=== PATIENT | female | born 1955 | race Caucasian/White ===

== ENCOUNTER 2017-07-30 09:00 | Outpatient (CLI) | payer MEDICARE, MEDICAID | END 2017-07-30 09:01 | disposition home or self-care (01) | LOC: BICMAMMO 09:00 | PROVIDERS: ATTEND Family Medicine | DX: Z12.31 Encounter for screening mammogram for malignant neoplasm of breast (principal) | CPT/HCPCS: 77063; G0202; 77067 ==

== ENCOUNTER 2017-10-08 12:55 | Outpatient (CLI) | payer MEDICARE, MEDICAID | END 2017-10-08 12:56 | disposition home or self-care (01) | LOC: BICULT 12:55 | PROVIDERS: ATTEND Urology | DX: R35.0 Frequency of micturition (principal); Z87.442 Personal history of urinary calculi | CPT/HCPCS: 76770 ==

== ENCOUNTER 2017-11-14 18:11 | Emergency (ER) | payer MEDICARE, MEDICAID ==
--- NOTE | 2017-11-14 20:04 | RAD ---
LEFT FOOT THREE VIEWS: 11/14/17 HISTORY: 62-year-old female with history of left foot pain following an injury. No evidence for acute fracture or dislocation. IMPRESSION: Degenerative changes without fracture or dislocation. POS: [facility]
--- NOTE | 2017-11-14 20:08 | RAD ---
CHEST PA AND LATERAL: 11/14/17 HISTORY: 62-year-old female with history of chest pain following trauma. COMPARISON: 10/04/10. Heart size is within normal limits. The lungs are clear. No pneumonia, edema, pleural effusion, pneum othorax or other acute intrathoracic disease. IMPRESSION: No acute intrathoracic disease. POS: [facility]
[2017-11-14] MEDS ORDERED: Ondansetron ODT 8 MG TAB ONE (20:44)
[2017-11-14] MEDS ORDERED: HYDROcodone/Acetaminophen 5/325 mg Tablet ONE (20:44)
--- NOTE | 2017-11-14 21:55 | CT ---
CT FACIAL BONES: 11/14/17 Multiple axial tomograms obtained through the facial bones with multiplanar reconstruction. HISTORY: Injury to right side of face with pain. FINDINGS: Nasal bones appear intact. The orbits appear intact. The lamina papyracea are intact. The paranasal s inuses are well aerated. Zygoma are intact. Maxilla appears intact. The mandible is intact. There is evidence of prior sinus surgery. IMPRESSION: No evidence of acute facial bone fracture identified. POS: [facility]
== END 2017-11-14 20:54 | disposition home or self-care (01) ==
LOC: ERS 18:11
DX: S00.83XA Contusion of other part of head, initial encounter (principal); S20.219A Contusion of unspecified front wall of thorax, initial encounter; S90.32XA Contusion of left foot, initial encounter; E78.5 Hyperlipidemia, unspecified; I10 Essential (primary) hypertension; J44.9 Chronic obstructive pulmonary disease, unspecified; F41.9 Anxiety disorder, unspecified; F32.9 Major depressive disorder, single episode, unspecified; W23.0XXA Caught, crushed, jammed, or pinched between moving objects, initial encounter
CPT/HCPCS: 70486; 71046

== ENCOUNTER 2018-01-18 14:42 | Day surgery (SDC) | payer MEDICARE, MEDICAID ==
[2018-01-17 12:01] VITALS: BMI 35.4
[2018-01-18] MEDS ORDERED: Bupivacaine PF 0.5% 30 ML VIAL ONE (15:05)
[2018-01-18] MEDS ORDERED: CEFAZOLIN/Water 2 GM/20 ML SYRINGE ONE (15:31)
[2018-01-18 15:48] LABS: Hemoglobin 14.3 g/dL (12.0-16.0); Mean Corpuscular HGB CONC 33.9 g/dL (32.0-36.0); Mean Corpuscular Hemoglobin 30.3 pg (27.0-31.0); Mean Corpuscular Volume 89.4 fl (81.0-99.0); Mean Platelet Volume 6.8 fL (7.4-10.4); Platelet Count 318 thou/uL (130-400); RBC Distribution Width 12.4 % (11.5-14.5); Red Blood Cell (RBC) Count 4.72 mill/uL (4.20-5.40); White Blood Cell (WBC) Count 9.6 thou/uL (4.8-10.8)
[2018-01-18 16:03] LABS: Anion Gap 14 mmol/L (10-20); BUN (Urea Nitrogen) 27 mg/dL (9.8-20.1); Calc. Creatinine Clearance 117 mL/min (70-130); Calcium 9.7 mg/dL (7.8-10.44); Carbon Dioxide 25 mmol/L (22-29); Chloride 104 mmol/L (98-107); Estimated GFR-MDRD 84; Glucose 93 mg/dL (70-105); Potassium 4.1 mmol/L (3.5-5.1); Sodium 139 mmol/L (136-145)
[2018-01-18] MEDS ORDERED: Fentanyl 100 MCG/2 ML VIAL ONE (16:30)
[2018-01-18] MEDS ORDERED: Midazolam HCl 2 mg/2 ml Vial ONE ×2 (16:30→16:58)
[2018-01-18] MEDS ORDERED: Lidocaine 1% PF 5 ML VIAL ONE (17:44)
[2018-01-18] MEDS ORDERED: PROPOFOL 200 MG/20 ML VIAL ONE (17:44)
--- NOTE | 2018-01-18 19:18 | RAD ---
RIGHT FOOT THREE VIEW 01/18/18 HISTORY: Postop pinning. COMPARISON: None. FINDINGS: There is a retrograde screw through the distal and proximal interphalangeal joints of the second toe. Hammertoe deformity correction of the second metatarsal neck. There are erosive changes throughout t he midfoot. IMPRESSION: Satisfactory postop appearance. POS: [facility]
--- NOTE | 2018-01-19 01:51 | OP ---
DATE OF PROCEDURE: 01/18/2018 SURGEON: Valeria Thakkar DPM PREOPERATIVE DIAGNOSES: Metatarsalgia, second metatarsal, right foot; dislocated second metatarsopha langeal joint, right foot; plantar plate tear, right foot; hammer toe, second digit, right foot; pain , right foot. POSTOPERATIVE DIAGNOSES: Metatarsalgia, second metatarsal, right foot; dislocated second metatarsoph alangeal joint, right foot; plantar plate tear, right foot; hammer toe, second digit, right foot; william n, right foot. PROCEDURES: Lisandro osteotomy, second metatarsal, right foot; plantar plate repair, right foot; and art hrodesis, second digit, right foot. ANESTHESIA: TIVA with local foot block. HEMOSTASIS: Pneumatic ankle tourniquet at 300 mmHg. ESTIMATED BLOOD LOSS: Less than 5 mL. MATERIALS: #2 FiberWire, 2 Synthes headless compression screws, 3-0 Vicryl, 4-0 Vicryl, and 4-0 nylo n. INJECTABLES: 20 mL of 0.5% Marcaine plain. DESCRIPTION OF PROCEDURE: The patient was brought into the operating room and placed on the operatin g table in supine position. Well-padded pneumatic ankle tourniquet was placed about the patient's [facility] lower extremity. Following administration of IV anesthesia, local foot block was given utilizing 20 mL of 0.5% Marcaine plain. The foot was then scrubbed, prepped, and draped in usual aseptic lopez er. Esmarch bandage was used to exsanguinate the patient's right foot. The pneumatic ankle tourniqu et was then inflated to 300 mmHg, which provided adequate hemostasis throughout the entire procedure. Next, attention was then directed to the dorsal aspect of the second metatarsophalangeal joint, whe re a 6-cm longitudinal incision was made extending to the proximal interphalangeal joint of the digit . The incision was deepened through subcuticular structures with care being taken to retract all vit al neurovascular structures. All bleeders were cauterized as necessary. Next, a longitudinal capsul otomy was performed exposing the head of the second metatarsal. Upon adequate exposure of the head, all soft tissue attachments were then carefully resected. A sagittal bone saw was then used to make an oblique cut at the neck of the second metatarsal, shifting into a more corrected shortened positio n. It was held in place with temporary fixation of a Leslee wire. Next, the plantar plate was in spected, where it was noted to be partially torn. At this time, plantar plate repair was performed w ith #2 FiberWire attaching the plantar plate to the base of the proximal phalanx. Next, a Synthes he adless compression screw was placed across the osteotomy site from dorsal to plantar holding into a s hortened position. Next, attention was then directed to the proximal interphalangeal joint of the se cond digit, where a transverse tenotomy was performed. Upon adequate exposure, the head of the proxi mal phalanx as well as the base of the intermediate phalanx were then carefully resected and passed f rom the operative field. Utilizing techniques and principles of [employer]olia, a K-wire was then driven th rough the intermediate phalanx exiting the distal phalanx and toe and retrograded back into the proxi mal phalanx. Fluoroscopy was used to assure proper alignment and all was noted to be correct at this time, and a screw was placed across the K-wire. It was then examined by fluoroscopy and was noted t o be correct at this time. Next, the wound was irrigated with copious amounts of sterile normal sali ne and mixture. The tendon and capsular structures were then reapproximated and coapted utilizing 3-0 Vicryl. The subcuticular was reapproximated and coapted utilizing 4-0 Vicryl. The skin was janett sed with 4-0 nylon in a running interlocking suture pattern. A light compressive dressing was placed about the patient's right foot and the pneumatic ankle tourniquet was released with prompt hyperemic response noted to all digits of the right foot. DISCHARGE SUMMARY: The patient tolerated the procedure and anesthesia and was transferred to the rec overy room with vital signs stable and vascular status intact to all digits of the right foot. Follo wing a period of postoperative monitoring, the patient is to be discharged home. Should she have any problems prior to the first postoperative appointment, she is advised to call and will be seen withi n 1 week of the procedure.
--- NOTE | 2018-01-21 12:47 | EKG ---
Test Reason : Blood Pressure : / mmHG Vent. Rate : 070 BPM Atrial Rate : 070 BPM P-R Int : 136 ms QRS Dur : 088 ms QT Int : 394 ms P-R-T Axes : 049 002 035 degrees QTc Int : 425 ms Poor data quality, interpretation may be adversely affected Normal sinus rhythm Normal ECG When compared with ECG of 26-JUL-2016 13:39, No significant change was found Confirmed by JOLIE FLORES M.D. ([id number]), dictionary editor JAMIE VENCES ([id number]) on 01/21/2018 12:46:57 PM Referred By: LYNDSAY Confirmed By:JOLIE FLORES M.D.
== END 2018-01-18 19:15 | disposition home or self-care (01) ==
LOC: SDC 14:42
PROVIDERS: ATTEND Podiatrist Foot & Ankle Surgery
PROC: 0QSN04Z Reposition Right Metatarsal with Internal Fixation Device, Open Approach (ICD-10-PCS; principal; 2018-01-18)
PROC: 0QBN0ZZ Excision of Right Metatarsal, Open Approach (ICD-10-PCS; 2018-01-18)
PROC: 0SQP0ZZ Repair Right Toe Phalangeal Joint, Open Approach (ICD-10-PCS; 2018-01-18)
DX: S93.124A Dislocation of metatarsophalangeal joint of right lesser toe(s), initial encounter (principal); S93.524A Sprain of metatarsophalangeal joint of right lesser toe(s), initial encounter; M20.41 Other hammer toe(s) (acquired), right foot; Z79.1 Long term (current) use of non-steroidal anti-inflammatories (NSAID); Z79.899 Other long term (current) drug therapy
CPT/HCPCS: 28285; 28308; 28313; 73630; 76001; 80048; 85027; C1713; 36415; J2001; J2250; J2704; J3010; S0020

== ENCOUNTER 2018-03-27 15:25 | Emergency (ER) | payer MEDICARE, MEDICAID ==
[2018-03-27] MEDS ORDERED: HYDROcodone/Acetaminophen 10/325 mg Tablet ONE (16:04)
[2018-03-27] MEDS ORDERED: Ondansetron ODT 4 MG TAB ONE (16:06)
== END 2018-03-27 16:25 | disposition home or self-care (01) ==
LOC: ERS 15:25
DX: B02.9 Zoster without complications (principal); E78.5 Hyperlipidemia, unspecified; I10 Essential (primary) hypertension; J44.9 Chronic obstructive pulmonary disease, unspecified; F41.9 Anxiety disorder, unspecified; F32.9 Major depressive disorder, single episode, unspecified; Z79.899 Other long term (current) drug therapy
CPT/HCPCS: 99282; Q0162

== ENCOUNTER 2019-09-01 12:47 | Outpatient (CLI) | payer MEDICARE, MEDICAID ==
--- NOTE | 2019-09-01 13:09 | MMO ---
Bilateral MAMMO Bilat Screen DDI+CASS. CLINICAL HISTORY: Patient is 64 years old and is seen for screening. The patient has no family history of breast cancer. The patient has no personal history of cancer. The patient has a history of left Stereotatic Biopsy in 2008 - benign. VIEWS: The views performed were: bilateral craniocaudal with tomosynthesis and bilateral mediolateral oblique with tomosynthesis. FILMS COMPARED: The present examination has been compared to prior imaging studies performed at [facility] on 11/04/2010, 02/21/2012, 06/14/2016 and 07/30/2017. This study has been interpreted with the assistance of computer-aided detection. MAMMOGRAM FINDINGS: There are scattered fibroglandular densities. There are new calcifications with grouped or clustered distribution seen in the posterior outer region of the right breast. In the left breast, there are no suspicious masses, calcifications or areas of architectural distortion. IMPRESSION: NEW CALCIFICATIONS IN THE RIGHT BREAST REQUIRE ADDITIONAL EVALUATION. RECOMMEND DIAGNOSTIC MAMMOGRAM. THE RESULTS OF THIS EXAM WERE SENT TO THE PATIENT. ACR BI-RADS Category 0 - Incomplete: Need additional imaging evaluation. [facility] will notify the patient of the need for additional imaging services. MAMMOGRAPHY NOTE: 1. A negative mammogram report should not delay a biopsy if a dominant of clinically suspicious mass is present. 2. Approximately 10% to 15% of breast cancers are not detected by mammography. 3. Adenosis and dense breasts may obscure an underlying neoplasm. Reported by: SORIN MENDOZA MD Electonically Signed: [id number]
== END 2019-09-01 12:48 | disposition home or self-care (01) ==
LOC: BICMAMMO 12:47
PROVIDERS: ATTEND Nurse Practitioner Family
DX: Z12.31 Encounter for screening mammogram for malignant neoplasm of breast (principal); Z91.89 Other specified personal risk factors, not elsewhere classified; N64.89 Other specified disorders of breast
CPT/HCPCS: 77063; 77067

== ENCOUNTER 2019-09-04 14:19 | Outpatient (CLI) | payer MEDICARE, MEDICAID ==
--- NOTE | 2019-09-04 14:55 | MMO ---
Right Breast MAMMO Unilat Diag DDI RT+CASS. CLINICAL HISTORY: Patient is 64 years old and is seen for diagnostic exam. The patient has no family history of breast cancer. The patient has no personal history of cancer. The patient has a history of left Stereotatic Biopsy in 2008 - benign. VIEWS: The views performed were: right craniocaudal spot compression magnification; right mediolateral oblique spot compression magnification; right mediolateral spot compression magnification; and right mediolateral with tomosynthesis. FILMS COMPARED: The present examination has been compared to prior imaging studies performed at [facility] on 02/21/2012, 06/14/2016, 07/30/2017 and 09/01/2019. This study has been interpreted with the assistance of computer-aided detection. MAMMOGRAM FINDINGS: There are scattered fibroglandular densities. There are a few amorphous or indistinct calcifications with grouped or clustered distribution seen in the posterior region of the right breast at 9 o'clock. Calcifications appear too faint for stereotactic bx. IMPRESSION: CALCIFICATIONS IN THE RIGHT BREAST ARE PROBABLY BENIGN. FOLLOW-UP IN 6 MONTHS IS RECOMMENDED. THE RESULTS OF THIS EXAM WERE SENT TO THE PATIENT. ACR BI-RADS Category 3 - Probably benign finding - short interval follow-up suggested. [facility] will notify the patient of the need for additional imaging services. MAMMOGRAPHY NOTE: 1. A negative mammogram report should not delay a biopsy if a dominant of clinically suspicious mass is present. 2. Approximately 10% to 15% of breast cancers are not detected by mammography. 3. Adenosis and dense breasts may obscure an underlying neoplasm. Reported by: BRISEYDA JESSICA MD Electonically Signed: [id number]
== END 2019-09-04 14:20 | disposition home or self-care (01) ==
LOC: BICMAMMO 14:19
PROVIDERS: ATTEND Nurse Practitioner Family
DX: R92.1 Mammographic calcification found on diagnostic imaging of breast (principal)
CPT/HCPCS: 77065; G0279

== ENCOUNTER 2020-04-14 13:58 | Outpatient (CLI) | payer MEDICARE, OTHER ==
--- NOTE | 2020-04-14 14:40 | MMO ---
Right Breast MAMMO Unilat Diag DDI RT+CASS. CLINICAL HISTORY: Patient is 65 years old and is seen for follow-up at short-interval from prior study. The patient has no family history of breast cancer. The patient has no personal history of cancer. The patient has a history of left Stereotatic Biopsy in 2008 - benign. VIEWS: The views performed were: right craniocaudal spot compression magnification; right craniocaudal with tomosynthesis; right mediolateral oblique with tomosynthesis; right mediolateral spot compression magnification; and right mediolateral with tomosynthesis. FILMS COMPARED: The present examination has been compared to prior imaging studies performed at [facility] on 06/14/2016, 07/30/2017, 09/01/2019 and 09/04/2019. This study has been interpreted with the assistance of computer-aided detection. MAMMOGRAM FINDINGS: There are scattered fibroglandular densities. There are stable amorphous or indistinct calcifications with grouped or clustered distribution seen in the right breast at 9 o'clock. IMPRESSION: STABLE CALCIFICATIONS IN THE RIGHT BREAST ARE PROBABLY BENIGN. FOLLOW-UP IN 6 MONTHS IS RECOMMENDED. THE RESULTS OF THIS EXAM WERE SENT TO THE PATIENT. ACR BI-RADS Category 3 - Probably benign finding - short interval follow-up suggested. [facility] will notify the patient of the need for additional imaging services. MAMMOGRAPHY NOTE: 1. A negative mammogram report should not delay a biopsy if a dominant of clinically suspicious mass is present. 2. Approximately 10% to 15% of breast cancers are not detected by mammography. 3. Adenosis and dense breasts may obscure an underlying neoplasm. Reported by: MARINE GREEN MD Electonically Signed: [id number]
== END 2020-04-14 13:59 | disposition home or self-care (01) ==
LOC: BICMAMMO 13:58
PROVIDERS: ATTEND Nurse Practitioner Family
DX: R92.1 Mammographic calcification found on diagnostic imaging of breast (principal)
CPT/HCPCS: 77065; G0279

== ENCOUNTER 2020-07-07 18:46 | Emergency (ER) | payer MEDICARE, OTHER ==
[2020-07-07 19:37] LABS: #Eosinphils 0.1 thou/uL (0.0-0.7); #Lymphocytes 1.2 thou/uL (1.20-3.40); #Monocytes 0.6 thou/uL (0.11-0.59); #Neutrophils 11.6 thou/uL (1.40-6.50); %Basophils 0.2 % (0.0-1.0); %Eosinophils 0.7 % (0.0-10.0); %Lymphocytes 9.1 % (21.0-51.0); %Monocytes 4.5 % (0.0-10.0); %Neutrophils 85.4 % (42.0-75.0); Hemoglobin 13.2 g/dL (12.0-16.0); Mean Corpuscular HGB CONC 32.9 g/dL (32.0-36.0); Mean Corpuscular Volume 88.2 fL (78.0-98.0); Mean Platelet Volume 7.2 fL (7.4-10.4); Platelet Count 333 thou/uL (130-400); RBC Distribution Width 12.7 % (11.5-14.5); Red Blood Cell (RBC) Count 4.55 mill/uL (4.20-5.40); White Blood Cell (WBC) Count 13.6 thou/uL (4.8-10.8)
[2020-07-07 19:53] LABS: ALT (SGPT) 18 U/L (8-55); AST (SGOT) 31 U/L (5-34); Albumin 3.5 g/dL (3.4-4.8); Alkaline Phosphatase 160 U/L (40-110); Anion Gap 14 mmol/L (10-20); BUN (Urea Nitrogen) 21 mg/dL (9.8-20.1); Bilirubin, Total 0.4 mg/dL (0.2-1.2); Calc. Creatinine Clearance 0 mL/min (70-130); Calcium 8.8 mg/dL (7.8-10.44); Carbon Dioxide 25 mmol/L (23-31); Chloride 105 mmol/L (98-107); Estimated GFR-MDRD 85; Globulin 2.8 g/dL (2.4-3.5); Glucose 170 mg/dL (80-115); Potassium 3.9 mmol/L (3.5-5.1); Protein, Total 6.3 g/dL (6.0-8.3); Sodium 140 mmol/L (136-145)
--- NOTE | 2020-07-07 20:40 | ULT ---
ULTRASOUND ABDOMEN LIMITED: (RIGHT UPPER QUADRANT) DATE: 07/07/2020 HISTORY: 65-year-old female with right upper quadrant abdominal pain, nausea FINDINGS: Gallbladder:Distended lumen. Multiple small and tiny mobile gallstones. Normal wall thickness, 2 mm. No sonographic Finley's sign. No pericholecystic fluid. Common duct: 5 mm. Liver:Echogenicity within normal limits. Pancreas:Nonspecific sonographic appearance. Right kidney:No hydronephrosis. IMPRESSION: Positive for cholelithiasis: Multiple small gallstones within distended gallbladder lumen.
--- NOTE | 2020-07-07 21:01 | RAD ---
RADIOGRAPH CHEST 1 VIEW: DATE: 07/07/2020 HISTORY: 65-year-old female with chest pain FINDINGS: There is no airspace density, pulmonary edema, or pneumothorax. The lateral costophrenic angles are n ot effaced. IMPRESSION: No acute pulmonary findings.
== END 2020-07-07 21:14 | disposition home or self-care (01) ==
LOC: ERS 18:46
DX: K80.20 Calculus of gallbladder without cholecystitis without obstruction (principal); E78.5 Hyperlipidemia, unspecified; E78.00 Pure hypercholesterolemia, unspecified; I10 Essential (primary) hypertension; F41.9 Anxiety disorder, unspecified; F32.9 Major depressive disorder, single episode, unspecified; Z79.899 Other long term (current) drug therapy
CPT/HCPCS: 36415; 71045; 76705; 80053; 83880; 84484; 85025; 93005; 94760

== ENCOUNTER 2020-07-28 06:30 | Outpatient (CLI) | payer MEDICARE, MEDICAID ==
[2020-07-28 11:07] LABS: #Eosinphils 0.2 10x3/uL (0.0-0.5); #Monocytes 0.4 10x3/uL (0.0-1.1); #Neutrophils 3.7 10x3/uL (1.5-8.4); %Basophils 0.6 % (0.0-2.0); %Lymphocytes 31.7 % (18.0-47.0); %Monocytes 6.6 % (0.0-10.0); %Neutrophils 57.8 % (40.0-75.0); Hemoglobin 12.8 g/dL (12.0-16.0); Mean Corpuscular HGB CONC 31.5 G/DL (32.0-36.0); Mean Corpuscular Hemoglobin 27.9 PG (27.0-33.0); Mean Corpuscular Volume 88.6 fl (80.0-100.0); Platelet Count 329 10x3/uL (130-400); RBC Distribution Width 13.7 % (11.5-14.5); Red Blood Cell (RBC) Count 4.58 10x6/uL (3.90-5.20); White Blood Cell (WBC) Count 6.4 10x3/uL (4.5-11.0)
[2020-07-28 11:29] LABS: ALT (SGPT) 15 U/L (8-55); AST (SGOT) 14 U/L (5-34); Alkaline Phosphatase 114 U/L (40-110); Anion Gap 16 mmol/L (10-20); BUN (Urea Nitrogen) 19 mg/dL (9.8-20.1); Bilirubin, Total 0.4 mg/dL (0.2-1.2); Calc. Creatinine Clearance 0 mL/min (70-130); Calcium 9.3 mg/dL (7.8-10.44); Carbon Dioxide 28 mmol/L (23-31); Chloride 105 mmol/L (98-107); Globulin 2.8 g/dL (2.4-3.5); Glucose 99 mg/dL (80-115); Potassium 4.7 mmol/L (3.5-5.1); Protein, Total 6.8 g/dL (6.0-8.3); Sodium 144 mmol/L (136-145)
[2020-07-28 14:38] LABS: Hemoglobin A1c 5.9 % (4.0-6.0)
[2020-07-28 18:18] LABS: SARS-CoV-2 MS2 Positive; SARS-CoV-2 N Gene Negative; SARS-CoV-2 S Gene Negative; SARS-CoV-2 by NAA Not Detected (NotDetected); SARS-CoV-2 orf1ab Negative
== END 2020-07-28 06:31 | disposition home or self-care (01) ==
LOC: LABBT 06:30
PROVIDERS: ATTEND Specialist
DX: Z01.818 Encounter for other preprocedural examination (principal); Z20.828 Contact with and (suspected) exposure to other viral communicable diseases; K80.20 Calculus of gallbladder without cholecystitis without obstruction
CPT/HCPCS: 80053; 83036; 85025; 93005; U0003; 87635; 93010

== ENCOUNTER 2020-08-02 10:12 | Day surgery (SDC) | payer MEDICARE, MEDICAID ==
[2020-07-30 09:25] VITALS: BMI 34.7
[2020-08-02] MEDS ORDERED: Acetaminophen 500 MG TAB ONE (10:24)
[2020-08-02] MEDS ORDERED: Ketorolac Tromethamine 30 MG/ML VIAL ONE (10:24)
[2020-08-02] MEDS ORDERED: Fentanyl 100 MCG/2 ML VIAL ONE (12:34)
[2020-08-02] MEDS ORDERED: Lidocaine 1% w/Epinephrine 1:100K 20 ML VIAL ONE (12:38)
[2020-08-02] MEDS ORDERED: Bupivacaine 0.25% HCL 30 ML VIAL ONE (12:38)
--- NOTE | 2020-08-03 12:15 | PRG ---
DATE OF SERVICE: 08/02/2020 Ms. Hoyt presented today for her laparoscopic cholecystectomy. During Anesthesia evaluation, it was noted that she had a cardiac murmur. Echocardiogram was ordered. This unfortunately showed findings consistent with severe aortic stenosis. In light of this new finding, her surgery was canceled for today. She has an appointment to see Dr. Joao Kim in about a week. I had already referred her to see him in regard to bradycardia. I recommended to her that she maintain a low fat diet between now and whenever we can address her gallbladder. I will be happy to proceed with her cholecystectomy after she is cleared from Cardiac standpoint. Job ID: [id number]
== END 2020-08-02 13:28 | disposition home or self-care (01) ==
LOC: SDC 10:12
PROVIDERS: ATTEND Specialist
DX: K80.20 Calculus of gallbladder without cholecystitis without obstruction (principal); R01.1 Cardiac murmur, unspecified; R00.1 Bradycardia, unspecified; K21.9 Gastro-esophageal reflux disease without esophagitis; Z53.8 Procedure and treatment not carried out for other reasons; Z87.891 Personal history of nicotine dependence; Z79.82 Long term (current) use of aspirin; Z79.899 Other long term (current) drug therapy
CPT/HCPCS: 93306; J0690; J1885; J3010; S0020

== ENCOUNTER 2021-07-20 14:42 | Outpatient (CLI) | payer MEDICAID, OTHER | END 2021-07-20 14:43 | disposition home or self-care (01) | LOC: BICMAMMO 14:42 | PROVIDERS: ATTEND Nurse Practitioner Family | DX: R92.8 Other abnormal and inconclusive findings on diagnostic imaging of breast (principal) | CPT/HCPCS: 77066; G0279 ==

== ENCOUNTER 2022-02-03 10:15 | Outpatient (CLI) | payer MEDICARE, OTHER | END 2022-02-03 10:16 | disposition home or self-care (01) | LOC: BICMAMMO 10:15 | PROVIDERS: ATTEND Nurse Practitioner Family | DX: R92.8 Other abnormal and inconclusive findings on diagnostic imaging of breast (principal) | CPT/HCPCS: 77065; G0279 ==

== ENCOUNTER 2022-05-19 18:45 | Emergency (ER) | payer OTHER ==
[~2022-05-19 18:45] MED LIST: Iopamidol-370 76% 500 ML 1 ML ONE
[2022-05-19 19:40] LABS: #Eosinphils 0.1 thou/uL (0.0-0.7); #Lymphocytes 1.9 thou/uL (1.20-3.40); #Monocytes 0.9 thou/uL (0.11-0.59); #Neutrophils 9.8 thou/uL (1.40-6.50); %Eosinophils 0.5 % (0.0-10.0); %Monocytes 7.1 % (0.0-10.0); %Neutrophils 77.3 % (42.0-75.0); Hemoglobin 11.8 g/dL (12.0-16.0); Mean Corpuscular HGB CONC 31.9 g/dL (32.0-36.0); Mean Corpuscular Hemoglobin 28.7 pg (27.0-31.0); Mean Corpuscular Volume 89.8 fL (78.0-98.0); Mean Platelet Volume 7.1 fL (7.4-10.4); Platelet Count 250 thou/uL (130-400); RBC Distribution Width 13.2 % (11.5-14.5); Red Blood Cell (RBC) Count 4.13 mill/uL (4.20-5.40); White Blood Cell (WBC) Count 12.6 thou/uL (4.8-10.8)
[2022-05-19 19:57] LABS: ALT (SGPT) 80 U/L (8-55); AST (SGOT) 34 U/L (5-34); Albumin 3.3 g/dL (3.4-4.8); Alkaline Phosphatase 157 U/L (40-110); Anion Gap 10 mmol/L (10-20); BUN (Urea Nitrogen) 15 mg/dL (9.8-20.1); Bilirubin, Total 0.6 mg/dL (0.2-1.2); Calc. Creatinine Clearance 0 mL/min (70-130); Calcium 8.1 mg/dL (7.8-10.44); Carbon Dioxide 25 mmol/L (23-31); Chloride 105 mmol/L (98-107); Estimated GFR 98; Globulin 2.7 g/dL (2.4-3.5); Glucose 117 mg/dL (80-115); Lipase 111 U/L (8-78); Potassium 3.7 mmol/L (3.5-5.1); Sodium 136 mmol/L (136-145)
[2022-05-19 20:21] LABS: Bacteria/HPF None Seen HPF (None Seen); Bilirubin Negative (Negative); Blood, Urine Trace (Negative); Clarity Clear (Clear); Glucose, Urine (Dipstick) Normal (Negative); Ketone, Urine Negative (Negative); Leukocyte 250 Leu/uL (Negative); Nitrite Negative (Negative); Protein, Urine (Dipstick) Negative (Neg-Trace); Specific Gravity, Urine 1.023 (1.002-1.036); Squamous Epithelial 0-3 HPF (0-3); Urobilinogen Normal mg/dL (Less than 2); pH, Urine 5.5 (5.0-9.0)
[2022-05-19] MEDS ORDERED: Morphine 4 MG/ML VIAL ONE (22:22)
[2022-05-19] MEDS ORDERED: Ondansetron PF 4 MG/2 ML Vial ONE (22:22)
== END 2022-05-20 00:54 | disposition home or self-care (01) ==
LOC: ERS 18:45
DX: K85.90 Acute pancreatitis without necrosis or infection, unspecified (principal); I10 Essential (primary) hypertension; E78.5 Hyperlipidemia, unspecified; J44.9 Chronic obstructive pulmonary disease, unspecified; Z87.891 Personal history of nicotine dependence; Z79.899 Other long term (current) drug therapy
CPT/HCPCS: 36415; 74177; 76705; 80053; 81003; 81015; 83690; 84484; 85025; 93005; 96374; 96375; J2270; J2405; Q9967

== ENCOUNTER 2022-05-27 03:51 | Inpatient (IN) | payer OTHER ==
[2022-05-27 04:59] LABS: #Eosinphils 0.2 thou/uL (0.0-0.7); #Lymphocytes 1.4 thou/uL (1.20-3.40); #Monocytes 0.7 thou/uL (0.11-0.59); #Neutrophils 6.3 thou/uL (1.40-6.50); %Basophils 0.2 % (0.0-1.0); %Eosinophils 1.8 % (0.0-10.0); %Lymphocytes 16.5 % (21.0-51.0); %Monocytes 7.6 % (0.0-10.0); %Neutrophils 73.9 % (42.0-75.0); Hemoglobin 13.7 g/dL (12.0-16.0); Mean Corpuscular HGB CONC 33.2 g/dL (32.0-36.0); Mean Corpuscular Hemoglobin 29.6 pg (27.0-31.0); Mean Corpuscular Volume 89.2 fL (78.0-98.0); Mean Platelet Volume 6.9 fL (7.4-10.4); Platelet Count 368 thou/uL (130-400); RBC Distribution Width 12.6 % (11.5-14.5); Red Blood Cell (RBC) Count 4.64 mill/uL (4.20-5.40); White Blood Cell (WBC) Count 8.5 thou/uL (4.8-10.8)
[2022-05-27 05:10] LABS: ALT (SGPT) 44 U/L (8-55); AST (SGOT) 90 U/L (5-34); Albumin 3.8 g/dL (3.4-4.8); Alkaline Phosphatase 241 U/L (40-110); Anion Gap 15 mmol/L (10-20); BUN (Urea Nitrogen) 24 mg/dL (9.8-20.1); Bilirubin, Total 0.6 mg/dL (0.2-1.2); Calc. Creatinine Clearance 0 mL/min (70-130); Calcium 9.7 mg/dL (7.8-10.44); Carbon Dioxide 27 mmol/L (23-31); Chloride 103 mmol/L (98-107); Estimated GFR 84; Globulin 4.1 g/dL (2.4-3.5); Glucose 135 mg/dL (80-115); Potassium 3.7 mmol/L (3.5-5.1); Protein, Total 7.9 g/dL (5.8-8.1); Sodium 141 mmol/L (136-145)
[2022-05-27] MEDS ORDERED: Morphine 4 MG/ML VIAL ONE (05:19)
[2022-05-27] MEDS ORDERED: Ondansetron PF 4 MG/2 ML Vial ONE (05:19)
[2022-05-27 05:36] LABS: Lipase 8600 U/L (8-78)
[2022-05-27 06:04] LABS: Bilirubin Negative (Negative); Blood, Urine Negative (Negative); Clarity Clear (Clear); Glucose, Urine (Dipstick) Normal (Negative); Ketone, Urine Negative (Negative); Leukocyte Negative Leu/uL (Negative); Nitrite Negative (Negative); Protein, Urine (Dipstick) 20 mg/dL (Neg-Trace); Specific Gravity, Urine 1.033 (1.002-1.036)
[2022-05-27] MEDS ORDERED: Piperacillin/Tazobactam 3.375 GM VIAL ONE (06:32)
[2022-05-27] MEDS ORDERED: Acetaminophen 325 MG TAB PO PRN (07:40)
[2022-05-27] MEDS ORDERED: Morphine 2 MG/ML VIAL SLOW IVP PRN (07:56)
[2022-05-27 11:35] LABS: SARS-CoV-2 NAA Rapid Test Not Detected (NotDetected)
[2022-05-27 13:39] VITALS: BMI 36.6
[2022-05-27] MEDS: Lactated Ringer's 1,000 ML IV SCH ×2 (14:45→20:50)
[2022-05-27] MEDS: Fish Oil 1,000 MG CAP PO SCH (19:14)
[2022-05-28] MEDS: Lactated Ringer's 1,000 ML IV SCH ×3 (05:46→20:23)
[2022-05-28 06:07] LABS: #Eosinphils 0.2 thou/uL (0.0-0.7); #Lymphocytes 1.8 thou/uL (1.20-3.40); #Monocytes 0.5 thou/uL (0.11-0.59); #Neutrophils 5.4 thou/uL (1.40-6.50); %Basophils 0.3 % (0.0-1.0); %Eosinophils 2.9 % (0.0-10.0); %Lymphocytes 22.5 % (21.0-51.0); %Monocytes 6.5 % (0.0-10.0); %Neutrophils 67.8 % (42.0-75.0); Mean Corpuscular HGB CONC 31.2 g/dL (32.0-36.0); Mean Corpuscular Hemoglobin 28.1 pg (27.0-31.0); Mean Corpuscular Volume 90.1 fL (78.0-98.0); Mean Platelet Volume 6.9 fL (7.4-10.4); Platelet Count 333 thou/uL (130-400); RBC Distribution Width 12.6 % (11.5-14.5); Red Blood Cell (RBC) Count 4.25 mill/uL (4.20-5.40)
[2022-05-28 06:51] LABS: Anion Gap 12 mmol/L (10-20); BUN (Urea Nitrogen) 13 mg/dL (9.8-20.1); Calc. Creatinine Clearance 127 mL/min (70-130); Calcium 8.8 mg/dL (7.8-10.44); Carbon Dioxide 25 mmol/L (23-31); Chloride 106 mmol/L (98-107); Estimated GFR 98; Glucose 99 mg/dL (80-115); Potassium 3.7 mmol/L (3.5-5.1); Sodium 139 mmol/L (136-145)
[2022-05-28] MEDS ORDERED: fentaNYL Citrate/PF 100 MCG/2 ML SYRINGE ONE (07:32)
[2022-05-28] MEDS ORDERED: Clopidogrel Bisulfate 75 MG TAB PO SCH (09:00)
[2022-05-28 10:16] LABS: ALT (SGPT) 69 U/L (8-55); AST (SGOT) 50 U/L (5-34); Albumin 3.3 g/dL (3.4-4.8); Alkaline Phosphatase 217 U/L (40-110); Bilirubin, Direct 0.2 mg/dL (0.1-0.3); Bilirubin, Total 0.4 mg/dL (0.2-1.2); Lipase 185 U/L (8-78); Protein, Total 6.6 g/dL (5.8-8.1)
[2022-05-28] MEDS: Atorvastatin Calcium 20 MG TAB PO SCH (10:23)
[2022-05-28] MEDS: Fish Oil 1,000 MG CAP PO SCH ×2 (10:23→17:40)
[2022-05-28] MEDS: Losartan/Hydrochlorothiazide 100 mg/25 mg Tablet PO SCH (10:24)
[2022-05-28] MEDS ORDERED: hydrALAZINE 20 MG/ML VIAL SLOW IVP PRN (12:19)
[2022-05-28] MEDS ORDERED: EPINEPHrine 1 MG/ML AMP ONE (12:57)
[2022-05-28] MEDS ORDERED: Bupivacaine 0.25% HCL 30 ML VIAL ONE (12:58)
[2022-05-28] MEDS ORDERED: Sodium Chloride 0.9% 100 ML ONE (13:18)
[2022-05-28] MEDS ORDERED: CEFAZOLIN 2 GM VIAL ONE (13:18)
[2022-05-28] MEDS ORDERED: Dexamethasone 20 MG/5 ML VIAL ONE (13:29)
[2022-05-28] MEDS ORDERED: Ondansetron PF 4 MG/2 ML Vial ONE (13:29)
[2022-05-28] MEDS ORDERED: Rocuronium Bromide 10 MG/ML (10ML VIAL) ONE (13:29)
[2022-05-28] MEDS ORDERED: PROPOFOL 200 MG/20 ML VIAL ONE (13:29)
[2022-05-28] MEDS ORDERED: SUGAMMADEX SODIUM 200 MG/2 ML VIAL ONE (14:08)
[2022-05-28] MEDS ORDERED: Iopamidol 15 ML ONE (14:08)
[2022-05-28] MEDS ORDERED: Ondansetron HCl/PF 4 MG/2 ML Vial IVP PRN (15:21)
[2022-05-28] MEDS ORDERED: Promethazine HCl 25 MG/ML VIAL IVPB PRN (15:21)
[2022-05-28] MEDS ORDERED: Promethazine HCl 25 MG/ML VIAL IM PRN (15:21)
[2022-05-28] MEDS ORDERED: Fentanyl 100 MCG/2 ML VIAL ONE (15:32)
[2022-05-28] MEDS: Morphine 4 MG/ML VIAL SLOW IVP PRN (17:39)
[2022-05-29] MEDS: Lactated Ringer's 1,000 ML IV SCH (04:37)
[2022-05-29 05:45] LABS: #Lymphocytes 1.3 thou/uL (1.20-3.40); #Monocytes 0.5 thou/uL (0.11-0.59); #Neutrophils 10.5 thou/uL (1.40-6.50); %Basophils 0.1 % (0.0-1.0); %Eosinophils 0.1 % (0.0-10.0); %Lymphocytes 10.8 % (21.0-51.0); Hemoglobin 12.2 g/dL (12.0-16.0); Mean Corpuscular HGB CONC 31.9 g/dL (32.0-36.0); Mean Corpuscular Hemoglobin 28.4 pg (27.0-31.0); Mean Corpuscular Volume 89.1 fL (78.0-98.0); Mean Platelet Volume 6.9 fL (7.4-10.4); Platelet Count 398 thou/uL (130-400); RBC Distribution Width 12.6 % (11.5-14.5); White Blood Cell (WBC) Count 12.4 thou/uL (4.8-10.8)
[2022-05-29 06:01] LABS: ALT (SGPT) 67 U/L (8-55); AST (SGOT) 50 U/L (5-34); Albumin 3.5 g/dL (3.4-4.8); Alkaline Phosphatase 196 U/L (40-110); Bilirubin, Direct 0.2 mg/dL (0.1-0.3); Bilirubin, Total 0.4 mg/dL (0.2-1.2); Protein, Total 7.2 g/dL (5.8-8.1)
[2022-05-29 06:03] LABS: Anion Gap 12 mmol/L (10-20); BUN (Urea Nitrogen) 10 mg/dL (9.8-20.1); Calc. Creatinine Clearance 122 mL/min (70-130); Calcium 9.4 mg/dL (7.8-10.44); Carbon Dioxide 25 mmol/L (23-31); Chloride 107 mmol/L (98-107); Estimated GFR 97; Glucose 117 mg/dL (80-115); Lipase 34 U/L (8-78); Potassium 3.6 mmol/L (3.5-5.1); Sodium 140 mmol/L (136-145)
[2022-05-29] MEDS: Losartan/Hydrochlorothiazide 100 mg/25 mg Tablet PO SCH (07:29)
[2022-05-29] MEDS: Atorvastatin Calcium 20 MG TAB PO SCH (07:29)
[2022-05-29] MEDS: Morphine 4 MG/ML VIAL SLOW IVP PRN (07:29)
[2022-05-29] MEDS: Fish Oil 1,000 MG CAP PO SCH (07:29)
[2022-05-29 09:15] VITALS: BP 149/63; TEMP 98.5
== END 2022-05-29 12:05 | disposition home or self-care (01) | DRG 417 ==
LOC: ERS 03:51 → SURG A 06:17
PROVIDERS: ADMIT Student in an Organized Health Care Education/Training Program; ATTEND Internal Medicine
PROC: 0FT44ZZ Resection of Gallbladder, Percutaneous Endoscopic Approach (ICD-10-PCS; principal; 2022-05-28)
PROC: BF131ZZ Fluoroscopy of Gallbladder and Bile Ducts using Low Osmolar Contrast (ICD-10-PCS; 2022-05-28)
DX: K80.00 Calculus of gallbladder with acute cholecystitis without obstruction (principal); K85.10 Biliary acute pancreatitis without necrosis or infection; I10 Essential (primary) hypertension; J44.9 Chronic obstructive pulmonary disease, unspecified; K21.9 Gastro-esophageal reflux disease without esophagitis; Z87.891 Personal history of nicotine dependence; Z95.2 Presence of prosthetic heart valve; Z79.02 Long term (current) use of antithrombotics/antiplatelets; Z79.899 Other long term (current) drug therapy; Z20.822 Contact with and (suspected) exposure to COVID-19; E88.09 Other disorders of plasma-protein metabolism, not elsewhere classified; I25.10 Atherosclerotic heart disease of native coronary artery without angina pectoris; E78.00 Pure hypercholesterolemia, unspecified; E66.9 Obesity, unspecified; Z68.36 Body mass index [BMI] 36.0-36.9, adult
CPT/HCPCS: 36415; 47532; 76705; 80048; 80053; 80076; 81003; 83690; 85025; 88304; C1713; J0171; J0690; J1100; J2270; J2405; J2543; J2704; J3010; J3490; J7120; Q9967; S0020; U0002

== ENCOUNTER 2022-08-08 08:35 | Outpatient (CLI) | payer OTHER | END 2022-08-08 08:36 | disposition home or self-care (01) | LOC: BICMAMMO 08:35 | PROVIDERS: ATTEND Nurse Practitioner Family | DX: R92.8 Other abnormal and inconclusive findings on diagnostic imaging of breast (principal); Z91.89 Other specified personal risk factors, not elsewhere classified | CPT/HCPCS: 77066; G0279 ==

== ENCOUNTER 2022-08-28 13:36 | Emergency (ER) | payer OTHER ==
[2022-08-28 15:00] LABS: #Eosinphils 0.2 thou/uL (0.0-0.7); #Lymphocytes 2.3 thou/uL (1.20-3.40); #Monocytes 0.5 thou/uL (0.11-0.59); #Neutrophils 5.6 thou/uL (1.40-6.50); %Basophils 0.2 % (0.0-1.0); %Eosinophils 2.3 % (0.0-10.0); %Lymphocytes 26.6 % (21.0-51.0); %Monocytes 6.2 % (0.0-10.0); %Neutrophils 64.8 % (42.0-75.0); Hemoglobin 12.5 g/dL (12.0-16.0); Mean Corpuscular HGB CONC 33.1 g/dL (32.0-36.0); Mean Corpuscular Hemoglobin 28.5 pg (27.0-31.0); Mean Corpuscular Volume 86.1 fl (78.0-98.0); Mean Platelet Volume 7.4 fL (7.4-10.4); Platelet Count 285 10x3/uL (130-400); RBC Distribution Width 13.5 % (11.5-14.5); White Blood Cell (WBC) Count 8.6 10x3/uL (4.8-10.8)
[2022-08-28 15:29] LABS: ALT (SGPT) 13 U/L (8-55); AST (SGOT) 16 U/L (5-34); Albumin 3.6 g/dL (3.4-4.8); Alkaline Phosphatase 113 U/L (40-110); Anion Gap 13 mmol/L (10-20); BUN (Urea Nitrogen) 19 mg/dL (9.8-20.1); Bilirubin, Total 0.3 mg/dL (0.2-1.2); Calc. Creatinine Clearance 0 mL/min (70-130); Calcium 9.4 mg/dL (7.8-10.44); Carbon Dioxide 24 mmol/L (23-31); Chloride 106 mmol/L (98-107); Estimated GFR 96; Globulin 3.8 g/dL (2.4-3.5); Glucose 139 mg/dL (80-115); Potassium 3.8 mmol/L (3.5-5.1); Protein, Total 7.4 g/dL (5.8-8.1); Sodium 139 mmol/L (136-145)
== END 2022-08-28 16:34 | disposition home or self-care (01) ==
LOC: ERS 13:36
DX: R53.1 Weakness (principal); R05.9 Cough, unspecified; E78.5 Hyperlipidemia, unspecified; I10 Essential (primary) hypertension; J44.9 Chronic obstructive pulmonary disease, unspecified; K21.9 Gastro-esophageal reflux disease without esophagitis; Z87.891 Personal history of nicotine dependence; Z79.899 Other long term (current) drug therapy
CPT/HCPCS: 36415; 71046; 80053; 84484; 85025; 93005